=== PATIENT | male | born 1985 | race Caucasian/White ===

== ENCOUNTER 2023-07-16 18:10 | Emergency (ER) | payer OTHER ==
[2023-07-16] MEDS ORDERED: HYDROmorphone 0.5 MG/0.5 ML Syringe IVPUSH ONE ×3 (18:19→19:44)
[2023-07-16] MEDS ORDERED: HYDROmorphone 0.5 MG/0.5 ML Syringe ONE (18:46)
[2023-07-16] MEDS ORDERED: Lidocaine 1% 4 ML ONE (19:57)
[2023-07-16] MEDS ORDERED: Propofol 200 MG/20 ML SDV ONE (19:57)
[2023-07-16] MEDS ORDERED: fentaNYL 100 MCG/2 ML SDV ONE (19:58)
== END 2023-07-16 21:20 | disposition home or self-care (01) ==
LOC: JD.ED 18:10
DX: S93.315A Dislocation of tarsal joint of left foot, initial encounter (principal); X58.XXXA Exposure to other specified factors, initial encounter
CPT/HCPCS: 27840; 73610; 96374; 99284; J1170; J2704; J3010; 01462; 73600-LT; 99140; J3490